=== PATIENT | female | born 1945 | race Caucasian/White ===

== ENCOUNTER 2017-04-27 12:14 | Emergency (ER) | payer MEDICARE ==
--- NOTE | 2017-04-27 12:52 | RAD ---
Indication: Shortness of breath. Single frontal view of the chest performed at 12:30 PM was reviewed. No prior study is available for comparison. No mediastinal shift is noted. Heart is of normal size and configuration. Lung maria appear clear. IMPRESSION: NO ACTIVE CARDIOPULMONARY DISEASE IS NOTED.
[2017-04-27 13:16] LABS: Hematocrit 44 % (35-47); Hemoglobin 14.9 g/dl (12.0-16.0); Mean Corpuscular HGB Conc 34 g/dl (31-36); Mean Corpuscular Hemoglobin 32 pg (27-31); Mean Corpuscular Volume 94 fL (80-97); Mean Platelet Volume 10 um3 (7.4-10.4); Red Blood Count 4.68 10^6/ul (4.0-5.4); Red Cell Distribution Width 14 % (10.5-15); White Blood Count 7.6 10^3/ul (3.5-10.8)
[2017-04-27 13:33] LABS: Albumin 4.6 g/dL (3.2-5.2); BUN/Creatinine Ratio 18.6 (8-20); Calcium 9.7 mg/dL (8.6-10.3); EGFR African American 83.9 (>60); EGFR Non-African American 65.2 (>60); Globulin 2.9 g/dL (2-4); Potassium 3.7 mmol/L (3.5-5.0); Total Bilirubin 0.8 mg/dL (0.2-1.0); Total Protein 7.5 g/dL (6.4-8.9)
--- NOTE | 2017-04-27 14:39 | RAD ---
INDICATION: Dizziness COMPARISON: None TECHNIQUE: Noncontrast axial source images were acquired from the skull base to the vertex. FINDINGS: Ventricles/sulci: The ventricles and cisterns are normal in size and configuration for age. Brain parenchyma: There is no focal parenchymal finding, evidence of intracranial mass, or intracranial mass effect. Intracranial hemorrhage:None. Extra-axial spaces: There are no abnormal extra axial fluid collections or evidence of extra-axial mass. Calvarium: There is no calvarial fracture or other calvarial abnormality. Scalp: There is no evidence of scalp or extracalvarial soft tissue abnormality. Paranasal sinuses/mastoid: There is circumferential mucosal thickening of the frontal, maxillary, and sphenoid air cells. There is complete opacification of the ethmoid air cells bilaterally. Other: None. IMPRESSION: No acute intracranial findings. Pansinusitis.
[2017-04-27 15:39] LABS: Urine Bacteria Absent (Absent); Urine Bilirubin Negative (Negative); Urine Glucose Negative (Negative); Urine Nitrite Negative (Negative)
[2017-04-27 18:10] VITALS: BP 126/80
--- NOTE | 2017-04-28 00:04 | CONS ---
EMERGENCY DEPARTMENT CONSULTATION: DATE OF CONSULT: 04/27/17 - EMERGENCY DEPT. PRIMARY CARE PROVIDER: Out of the area. REQUESTING PROVIDER: Dr. Rober Garcia. CONSULTING PROVIDER: CHAN Corcoran SUPERVISING PHYSICIAN: Dr. Sarai Prabhakar. (DICTATED BY CHAN CORCORAN) CHIEF COMPLAINT: Near syncope. HISTORY OF PRESENT ILLNESS: This is a 72-year-old female who is otherwise quite healthy without any chronic medical conditions, who presented to the emergency department with complaints of lightheadedness and feelings of near syncope. The patient was seen in the urgent care yesterday with similar symptoms but less severe, accompanied by a nearly 2-week history of coughing, sneezing with associated nasal drainage and facial fullness. The patient has been afebrile, denies any nausea and vomiting, but she has had a poor sense of taste and smell and poor appetite. The patient was diagnosed with sinusitis at urgent care yesterday and started on Augmentin. The patient reports additional therapies including Nasacort nasal spray, saline nasal spray, Sosa daily, and Mucinex. This morning, the patient's feelings of lightheadedness became more severe and she felt as if she was going to pass out, which prompted her to seek care in the emergency department. She states that she felt a tingling sensation all over. The lightheadedness occurred at rest, she was seated in all occasions and was not associated with movement from a sitting to standing position. She denied any associated, nausea, vomiting, diaphoresis, chest pain , or shortness of breath. The patient states that she has had similar symptoms in the past, most recently in January of this year and actually had a syncopal episode. She was seen in the emergency department at home, which is [place] for her and her workup was negative at that time with the exception of sinusitis. PAST MEDICAL HISTORY: None. PAST SURGICAL HISTORY: Unknown. HOME MEDICATIONS: 1. Augmentin 875/125 one tablet p.o. b.i.d. 2. Vitamin C 500 mg p.o. daily. 3. QVAR 1 puff inhaled twice daily. 4. Fiber supplementation. 5. Vitamin B12 500 mcg p.o. daily. 6. Sosa 180 mg p.o. daily. 7. Ibuprofen 200 mg p.o. q.6 hours as needed for pain or fever. 8. Multivitamin 1 tablet p.o. daily. 9. Nasacort nasal spray 2 sprays in both nostrils daily. 10. Mucinex 600 mg p.o. twice daily. SOCIAL HISTORY: The patient lives at home with her . She is retired. She and her reside in [place] and has been traveling for the last month in a motor home. She denies any significant smoking history and occasional alcohol consumption. REVIEW OF SYSTEMS: As noted above in HPI. All other systems reviewed and noted to be negative. PHYSICAL EXAM: Initial Vital Signs: Temperature 98.2 degrees Fahrenheit, pulse 79 beats per minute, respiratory rate 18, oxygen saturation 99% on room air, blood pressure 163/91 mmHg. Orthostatic vital signs are essentially negative with a lying blood pressure of 137/79, sitting 133/86, standing 121/ 93. Pulse lying is 64, sitting 66, standing 81. General: This is a very pleasant 72-year-old female, who appears younger than her stated age and is accompanied by her , who appears mildly ill but in no acute distress. HEENT: Head is normocephalic, atraumatic. Mucous membranes are pink and moist. TMs are dull and retracted bilaterally without erythema. Oropharynx is clear and without erythema or edema. Neck is supple and free of lymphadenopathy. Cardiovascular: Heart has a regular rate and rhythm without murmurs, rubs, or gallops. Respiratory: Lungs are clear to auscultation without wheezes, crackles, or rhonchi. Abdomen: Abdomen is soft and nontender to palpation. Extremities: No edema appreciated. Skin: Limited exam shows no concerning rashes or lesions. LABORATORY EVALUATION: CBC is unremarkable with a white blood cell count of 7600, hemoglobin of 14.9 g/dL, and a platelet count of 241,000. Comprehensive metabolic panel is within normal limits with a sodium of 133, potassium 3.7, serum bicarb 22, BUN 16, creatinine 0.86. Lactic acid 1.7. Transaminases, total bilirubin within normal limits. Troponin negative. Urinalysis shows trace leuk esterase but otherwise normal. IMAGING: CT of the brain shows no acute process aside from pansinusitis. Chest x-ray shows no acute process. EKG shows a normal sinus rhythm. ASSESSMENT AND PLAN: This is an otherwise healthy 72-year-old female, who presented to the emergency department with complaints of near syncope and recent upper respiratory infection symptoms, diagnosed with sinusitis. 1. Acute sinusitis - recommend continuing all therapy including Augmentin as previously prescribed. 2. Near syncope - this is likely related to her acute illness. There are no metabolic derangements to explain her symptoms, vitals are within normal limits , orthostatics are normal. She does not provide a history that is consistent with vertigo. Recommend continued supportive care for her acute sinusitis, but hospital admission is not indicated in this case. 3. Code status. Full code. 4. Healthcare proxy is the patient's . DISPOSITION: Case discussed with emergency department provider Dr. Rober Garcia and recommend discharge to home without any changes to her current medications listed above. The patient may benefit from seeing an ear, nose, and throat doctor after returning home to [place]. CHAN CORCORAN [id number]/[facility] #: [id number] ANASTASIIA
--- NOTE | 2017-05-05 15:08 | ED ---
Virgil Erickson Angela, scribed for Rober Garcia MD on 04/27/17 at 1253 . Shortness of Breath - HPI Summary HPI Summary: This pt is a 72 y/o female [facility]/o light-headedness and mild SOB today. Pt reports she was seen at Urgent Care yesterday and was discharge with a diagnosis of sinus infection on Augmentin. Pt states rhinorrhea of yellow color x2 weeks which was worse 2 days ago. She notes she has not been feeling well for the past week. Today she states feeling shaky with a feeling of passing out but denies LOC or syncope. While waiting in the ED today she experienced 2 episodes of light-headedness. She reports cough, decreased appetite,tingling in her arms, legs, and face, and chronic back pain (which makes sleeping difficult). Pt denies nausea, vision changes, chest pain. She denies any change in medication. - History of Current Complaint Chief Complaint: EDShortnessOfBreath Time Seen by Provider: 04/27/17 12:21 Hx Obtained From: Patient Onset/Duration: Gradual Onset Aggrevating Factors: Nothing Alleviating Factors: Nothing Associated Signs & Symptoms: Cough (Nonproductive), Dizzy - Allergy/Home Medications Allergies/Adverse Reactions: Allergies Allergy/AdvReac Type Severity Reaction Status Date / Time No Known Allergies Allergy Verified 04/27/17 12:17 Home Medications: Home Medications Amoxicillin/Clavulanate TAB* [Augmentin TAB 875*] 875 mg PO BID 04/27/17 [ History Confirmed 04/27/17] Ascorbic Acid TAB* [Vitamin C TAB*] 500 mg PO DAILY 04/27/17 [History Confirmed 04/27/17] Beclomethasone 80 MCG MDI(NF) [Qvar 80 MCG MDI(NF)] 1 puff INH BID 04/27/17 [ History Confirmed 04/27/17] Calcium 600 mg PO DAILY 04/27/17 [History Confirmed 04/27/17] Calcium Polycarbophil [Fiber Tabs] 625 mg PO DAILY 04/27/17 [History Confirmed 04/27/17] Cyanocobalamin TAB* [Vitamin B12 TAB*] 500 mcg PO DAILY 04/27/17 [History Confirmed 04/27/17] Estratest 1 cap PO MOWEFR 04/27/17 [History Confirmed 04/27/17] Fexofenadine (NF) [Sosa 180 (NF)] 180 mg PO QPM 04/27/17 [History Confirmed 04/27/17] Ibuprofen [Ibuprofen 200 MG] 200 mg PO Q6HR PRN 04/27/17 [History Confirmed ] Multivitamins/Minerals TAB* [Theragran/minerals TAB*] 1 tab PO DAILY 04/27/17 [ History Confirmed 04/27/17] Triamcinolone NASAL SPRAY* [Nasacort AQ Nasal [place]*] 2 spray BOTH NARES QAM [History Confirmed 04/27/17] guaiFENesin ER TAB [Mucinex*] 600 mg PO BID PRN 04/27/17 [History Confirmed ] PMH/Surg Hx/FS Hx/Imm Hx Endocrine/Hematology History: Denies: Hx Diabetes Cardiovascular History: Denies: Hx Atrial Fibrillation, Hx Hypertension Infectious Disease History: No Infectious Disease History: Denies: Traveled Outside the [place] in Last 30 Days - Social History Alcohol Use: Weekly Substance Use Type: Reports: None Smoking Status (MU): Former Smoker Review of Systems Negative: Fever, Chills Negative: Erythema Positive: Nasal Discharge - yellow rhinorrhea. Negative: Sore Throat Negative: Chest Pain Positive: Shortness Of Breath - mild, Cough Negative: Abdominal Pain, Vomiting, Nausea Negative: dysuria, hematuria Positive: Other - chronic back pain. Negative: Myalgia, Edema Negative: Rash Neurological: Other - POSITIVE: Dizziness, light-headedness All Other Systems Reviewed And Are Negative: Yes Physical Exam - Summary Physical Exam Summary: Constitutional: Well-developed, Well-nourished, Alert. (-) Distressed Skin: Warm, Dry HENT: Eyes: Conjunctiva normal. No sinus tenderness. Neck: Musculoskeletal ROM normal neck. (-) JVD, (-) Stridor, (-) Tracheal deviation Cardio: Rhythm regular, rate normal, Heart sounds normal; Intact distal pulses; The pedal pulses are 2+ and symmetric. Radial pulses are 2+ and symmetric. (-) Murmur Pulmonary/Chest wall: Effort normal. (-) Respiratory distress, (-) Wheezes, (-) Rales Abd: Soft. (-) Tenderness, (-) Distension, (-) Guarding, (-) Rebound Musculoskeletal: (-) Edema Lymph: (-) Cervical adenopathy Neuro: Alert, Oriented x3, Strength normal, Cranial nerves II-XII are grossly intact. (-) Dysmetria, (-) Nystagmus, (-) Ataxia by finger to nose testing, (-) Sensory deficit. Psych: Mood and affect Normal Triage Information Reviewed: Yes Vital Signs On Initial Exam: Initial Vitals Temp Pulse Resp BP Pulse Ox 98.2 F 79 18 163/91 99 04/27/17 12:14 04/27/17 12:14 04/27/17 12:14 04/27/17 12:14 04/27/17 12:14 Vital Signs Reviewed: Yes - Betito Coma Scale Coma Scale Total: 15 Diagnostics - Vital Signs Vital Signs Temp Pulse Resp BP Pulse Ox 04/27/17 12:41 98.2 F 71 19 148/85 99 04/27/17 12:35 99 04/27/17 12:27 74 17 98 04/27/17 12:25 148/85 04/27/17 12:14 98.2 F 79 18 163/91 99 - Laboratory Result Diagrams: 04/27/17 12:52 04/27/17 12:52 Lab Statement: Any lab studies that have been ordered have been reviewed, and results considered in the medical decision making process. - Radiology Chest XR Xray Interpretation: No Acute Changes - IMPRESSION: NO ACTIVE CARDIOPULMONARY DISEASE NOTED. Radiology Interpretation Completed By: Radiologist - CT CT Brain CT Interpretation: No Acute Changes - IMPRESSION: no acute intracranial findings. Pansinusitis. CT Interpretation Completed By: Radiologist - EKG 12:34 Cardiac Rate: NL - 65 bpm EKG Rhythm: Sinus Rhythm EKG Interpretation: No STEMI Re-Evaluation - Re-Evaluation First Eval Re-Evaluation Time: 17:35 Comment: Pt was updated on her results. Course/Dx - Course Course Of Treatment: Elevated blood pressure noted. - Diagnoses Provider Diagnoses: Sinusitis, Dizziness Discharge - Discharge Plan Condition: Stable Disposition: HOME Patient Education Materials: Sinusitis (ED), Dizziness (ED) Referrals: Non Staff,Doctor [Primary Care Provider] - Additional Instructions: Your blood pressure was elevated during your visit today. Please follow up with your primary care provider for a blood pressure reading. RETURN TO THE EMERGENCY DEPARTMENT FOR CHANGING OR WORSENING SYMPTOMS. The documentation as recorded by the Virgil rosario Angela accurately reflects the service I personally performed and the decisions made by , Rober Garcia MD.
== END 2017-04-27 18:39 | disposition home or self-care (01) ==
LOC: ED 12:14
DX: R55 Syncope and collapse (principal); J01.90 Acute sinusitis, unspecified; R42 Dizziness and giddiness; R05 Cough
CPT/HCPCS: 36415; 70450; 71010; 80053; 81003; 81015; 83605; 84484; 85025; 87040; 87086; 93005; 99284